=== PATIENT | female | born 1995 | race American Indian/Alaskan Native ===

== ENCOUNTER 2019-05-11 22:49 | Emergency (ER) | payer SELFPAY ==
--- NOTE | 2019-05-12 03:24 | Emergency Department Report ---
ED Extremity Problem HPI - General Chief complaint: Extremity Injury, Lower Stated complaint: RT AND LT ANKLE PAIN Time Seen by Provider: 05/12/19 02:47 Source: patient Mode of arrival: Ambulatory Limitations: No Limitations - History of Present Illness Initial comments: 24-year-old female presents to ED with bilateral ankle pain for one month. Patient reports that she had swelling, however improves that she started wearing compression socks. She denies any shortness of breath or calf pain. She denies fevers. Patient states that since she switched from sandals to sneakers, the pain has improved because the sneakers provide more support for her ankles. Complaint: extremity pain -: month(s) (1) Location: bilateral lower extremity -: Yes arthralgia, No fever, No associated dyspnea, No associated chest pain Quality: aching Consistency: intermittent Improves with: other (compression) Worsens with: palpation Associated Symptoms: denies other symptoms - Related Data Previous Rx's Medication Instructions Recorded Last Taken Type Naproxen [Naprosyn] 500 mg PO BID #20 tablet 05/12/19 Unknown Rx Allergies Allergy/AdvReac Type Severity Reaction Status Date / Time No Known Allergies Allergy Verified 05/11/19 23:23 ED Review of Systems ROS: Stated complaint: RT AND LT ANKLE PAIN Other details as noted in HPI Comment: All other systems reviewed and negative Constitutional: denies: chills, fever Respiratory: denies: shortness of breath Cardiovascular: denies: chest pain Musculoskeletal: arthralgia, other ED Past Medical Hx - Medications Home Medications: Home Medications Medication Instructions Recorded Confirmed Last Taken Type Naproxen [Naprosyn] 500 mg PO BID #20 tablet 05/12/19 Unknown Rx ED Physical Exam - General Limitations: No Limitations General appearance: alert, in no apparent distress - Head Head exam: Present: atraumatic, normocephalic - Eye Eye exam: Present: normal appearance, PERRL, EOMI - ENT ENT exam: Present: mucous membranes moist - Neck Neck exam: Present: normal inspection - Respiratory Respiratory exam: Present: normal lung sounds bilaterally. Absent: respiratory distress - Cardiovascular Cardiovascular Exam: Present: regular rate, normal rhythm - GI/Abdominal GI/Abdominal exam: Present: soft. Absent: distended, tenderness - Extremities Exam Extremities exam: Present: normal inspection, other (no swelling present in either ankle, minimal tenderness present, pt ambulating normally) - Neurological Exam Neurological exam: Present: alert, oriented X3, normal gait - Psychiatric Psychiatric exam: Present: normal affect, normal mood - Skin Skin exam: Present: warm, dry, intact, normal color ED Course Vital Signs 05/12/19 00:08 Temperature 98.4 F Pulse Rate 87 Respiratory 16 Rate Blood Pressure 128/86 O2 Sat by Pulse 98 Oximetry Critical care attestation.: If time is entered above; I have spent that time in minutes in the direct care of this critically ill patient, excluding procedure time. ED Disposition Clinical Impression: Arthralgia of ankle, left, Arthralgia of ankle, right Disposition: DC-01 TO HOME OR SELFCARE Is pt being admited?: No Condition: Stable Instructions: Arthralgia (ED) Referrals: LUIS FELIPE MEADOWS MD [Primary Care Provider] - 3-5 Days JASMYNE PEACOCK MD [Staff Physician] - 3-5 Days Time of Disposition: 03:24
[2019-05-12 03:33] VITALS: BP 120/78
== END 2019-05-12 03:31 | disposition home or self-care (01) ==
LOC: ED 22:49
DX: M25.571 Pain in right ankle and joints of right foot (principal); M25.572 Pain in left ankle and joints of left foot; R22.43 Localized swelling, mass and lump, lower limb, bilateral
CPT/HCPCS: 99282